=== PATIENT | female | born 1975 | race Caucasian/White ===

== ENCOUNTER 2020-04-22 11:10 | Outpatient (CLI) | payer OTHER, SELFPAY ==
--- NOTE | 2020-04-22 11:20 | ECG_ITS ---
Measurements Intervals [place] Rate: 70 P: 64 MS: 160 QRS: 41 QRSD: 86 T: 46 QT: 392 QTc: 424 Interpretive Statements SINUS RHYTHM BASELINE ARTIFACT- I, II, III, AVR, AVL, AVF, V1-V6 NORMAL ECG Electronically Signed On 04-22-2020 11:35:54 [employer] by Pineda Madden D.O.
[2020-04-22 12:03] LABS: Anion Gap 2 mmol/L (8-16); Blood Urea Nitrogen 28 mg/dL (7-17); Carbon Dioxide 33 mmol/L (22-30); Chloride 103 mmol/L (98-107); Estimated Glomerular Filt Rate > 60; Glucose 74 mg/dL (65-105); Potassium 4.1 mmol/L (3.4-5.0); Sodium 138 mmol/L (137-145)
== END 2020-04-22 11:11 | disposition home or self-care (01) ==
PROVIDERS: Anesthesiology; Visit Provider Surgery Plastic and Reconstructive Surgery
DX: Z01.812 Encounter for preprocedural laboratory examination (principal); Z51.81 Encounter for therapeutic drug level monitoring; Z79.899 Other long term (current) drug therapy
CPT/HCPCS: 36415; 80048; 93005

== ENCOUNTER 2020-04-25 00:58 | Outpatient (CLI) | payer OTHER, SELFPAY ==
[2020-04-25 19:13] LABS: SARS-CoV-2 RNA PCR Negative
== END 2020-04-25 00:59 | disposition home or self-care (01) ==
LOC: ANHCOVIDDT 00:58
PROVIDERS: Visit Provider Surgery Plastic and Reconstructive Surgery
DX: Z01.812 Encounter for preprocedural laboratory examination (principal); Z20.828 Contact with and (suspected) exposure to other viral communicable diseases
CPT/HCPCS: 87635; C9803; U0003

== ENCOUNTER 2020-04-28 01:13 | Day surgery (SDC) | payer OTHER, SELFPAY ==
[2020-04-21 15:40] VITALS: BMI 21.9
--- NOTE | 2020-04-27 12:14 | WPDANESEPPF ---
Anes - Initial Pre Proc Eval Procedure: Operation Date: 04/28/20 12:30 Proposed Procedures p Bilateral Augmentation Mammoplasty - Jordi Rogers MD s Liposuction Of Bilateral Flank - Jordi Rogers MD Date/Time: 04/27/20 12:14 Surgeon: Jordi Rogers MD Pre Op Diagnosis: Micromastia/Adipose Tissue Patient Data Age: 44 Gender: F Height: 1.63 m Weight: 58 kg Allergies Allergy/AdvReac Type Severity Reaction Status Date / Time No Known Allergies Allergy Verified 04/28/20 10:43 Home Medications Medication Instructions Recorded Confirmed Type furosemide 20 mg tablet 10 mg PO QAM 01/29/20 04/28/20 History lisinopril 5 mg tablet 5 mg PO HS 01/29/20 04/28/20 History mycophenolate mofetil 500 mg tablet 500 mg PO QAM 01/29/20 04/28/20 History prednisone 10 mg tablet 5 mg PO QAM 01/29/20 04/28/20 History rosuvastatin 40 mg tablet 20 mg PO DAILY 01/29/20 04/28/20 History docusate sodium 100 mg capsule 100 mg PO DAILY #14 cap 04/13/20 04/28/20 Rx ondansetron HCl 4 mg tablet 4 mg PO Q8H #28 tablet 04/13/20 04/21/20 Rx carisoprodol 350 mg tablet 350 mg PO TID PRN #21 tablet 04/14/20 04/28/20 Rx oxycodone-acetaminophen 5 mg-325 1 tablet PO Q6H PRN #15 tablet 04/14/20 04/21/20 Rx mg tablet Aspirin Child 81 mg PO DAILY 04/21/20 04/28/20 History Vitamin D3 1,000 units PO DAILY 04/21/20 04/28/20 History ascorbic acid (vitamin C) 500 mg PO DAILY 04/21/20 04/28/20 History Patient hx anesthesia problems: none Family hx anesthesia problems: none PMFSH Past Medical History Medical History (Updated 04/27/20 @ 12:15 by Evan Scott MD) Cardiac calcification Hypercholesterolemia Kidney dysfunction Lupus Surgical History Surgical History History of partial hysterectomy Social History Social History (Reviewed 04/13/20 @ 16:59 by Tamara Yan Smoking status: Former smoker Tobacco type: cigarettes Alcohol intake: current Drinks per week: 1 Substance use: never Living arrangements: with family Spiritual care concerns: No Anes - Eval Final PreProcedure Day of Procedure 04/27/20 12:14 Patient weight: normal Heart: regular rate and rhythm Lungs: clear to auscultation and normal air movement Airway: Mallampati scale class II Neurological: alert and oriented Last oral intake: >/= 8 hours ASA classification: III Emergent: no Anesthetic plan: proceed Anesthesia type and monitoring: general LMA and ETT Informed Consent: The patient's anesthetic plan and its attendant risks and benefits were discussed with the patient/family/POA. Questions were solicited and answers provided to the satisfaction of the patient/family/POA.
[2020-04-28] VITALS (10 sets, daily range): BP systolic 101–115; BP diastolic 51–83; PULSE 66–94; RESP 15–20; TEMP 36.3–36.4; O2SAT 99–100; BMI 22.1
[2020-04-28] MEDS: LACTATED RINGERS 1,000 ML 30 ML IV CONT ×2 (11:00→15:07)
--- NOTE | 2020-04-28 11:56 | WPDHPUPDATE1 ---
History and Physical Update Update Date/Time: 04/28/20 11:56 History and Physical has been reviewed, including an updated exam of the patient. There are NO changes in the patient's condition. Risks, benefits, and alternatives have been discussed and questions answered. Patient agrees to proceed with procedure.
--- NOTE | 2020-04-28 12:24 | PM.PROC ---
Procedure Note - Detailed Date of procedure: 04/28/20 Pre-op diagnosis: Micromastia/Adipose Tissue Post-op diagnosis: same Procedure performed: 1. Bilateral Augmentation Mammaplasty 2. Suction lipectomy of Flank Description of procedure: She is here today for bilateral breast augmentation. Previously and again today the risks, benefits, alternatives were discussed in extensive detail. I wanted her to be very realistic about the risks involved as well as expectations. We discussed aftercare and what to monitor for. Made sure answered all of her questions to her satisfaction today and consent was obtained. Marked in the preoperative holding area with their verification. We had a lengthy discussion about asymmetries and realistic expectations of outcome. These areas of concern were identified to her. We marked out all areas including suction lipectomy which she includes a small central lower abdomen pocket which will be treated. I made sure we were in full agreement and she had clear understanding prior to proceeding. The patient was taken to the operating room placed supine on the operating table. Anesthesia was provided by anesthesiology. Prepped and draped in a standard sterile fashion. This was a 360 degree prep while supine. A surgical time-out was taken. Stab incisions were made for suction lipectomy and infiltrated with a tumescent solution in the areas of concern. I gave time for adequate hemostasis. Then using a 4 mm basket cannula and modification of S.A.F.E. tech make completed suction lipectomy of the flank and other areas of concern to a rolling pinch test based on preoperative planning intraoperative observations as well as a rolling pinch test as above. Steri-Strips were placed on the sites. At this point we re-prepped and draped in a standard sterile fashion to ensure sterility for augmentation. 1% lidocaine and 0.25% Marcaine with epinephrine was used anesthetize as a field block. She was prepped and draped in a standard sterile fashion. Tegaderm nipple Lawrence were placed. A 15 blade used to make an incision along the inframammary fold. Dissection was continued at 45 degree angle until the chest wall as identified. I incised the pectoralis major along its inferior border and completely released the inferior border leaving the medial border intact. I created a subpectoral pocket in the appropriate dimensions based on our preoperative planning for the implant. I then copiously irrigated with saline solution and verified a strict hemostasis. Next the use a triple antibiotic and Betadine containing solution to irrigate the pocket. I washed my gloves with the triple antibiotic and Betadine solution. We washed the implant immediately upon opening it with this solution and only opened it when we needed it. I used implant funnel and no-touch technique. The implant was introduced into the pocket using the funnel. Having verified positioning of the implant this was closed using 2-0 Vicryl followed by 3-0 Monocryl in a running subcuticular 4-0 Monocryl followed by tissue glue. Fluffs, Anjum wrap, and surgical bra were placed. Patient was awoke and taken to PACU without difficulty. All instrument sponge counts were correct at the end of the case. Anesthesia: GETA Surgeon: Jordi Rogers MD Estimated blood loss (mL): 75 Drains: No Packing: No Pathology: none sent Complications: No immediate complications Condition: stable Disposition: PACU Findings: Bilateral dual plane 3 augmentation Kevin Nash SofTouch 445cc Right: REF# [id number] SN [id number] Left: REF# [id number] SN [id number]
[2020-04-28] MEDS: ceFAZolin 2 GM/D5W 50 ML 2 GM/50 ML BAG IVPB (12:31)
--- NOTE | 2020-04-28 13:18 | SUR.OPER ---
PT LISTED BLEEDING DISORDER IN HISTORY IN EMR. WHEN QUESTIONED PT STATED SHE HAD ANTICARDIOLIPIN ANTIBODIES . DR CASTANON AND DR SCOTT AWARE- DR SCOTT STATED PT RECEIVED CLEARANCE FROM HER MEDICAL DOCTOR, CARDIOGIST, AND COMMISSIONS ANALYST.
[2020-04-28] MEDS: LIDO 1%/EPINEPHRINE 1:100,000 20 ML VIAL 40 ML INFILTRATE (14:02)
== END 2020-04-28 17:00 | disposition home or self-care (01) ==
PROVIDERS: Visit Provider Surgery Plastic and Reconstructive Surgery
PROC: (CPT 19325; principal; 2020-04-28 12:30)
PROC: (CPT 15877; 2020-04-28 12:30)
DX: Z41.1 Encounter for cosmetic surgery (principal); N64.82 Hypoplasia of breast; E65 Localized adiposity; E78.00 Pure hypercholesterolemia, unspecified; Z87.891 Personal history of nicotine dependence; Z79.899 Other long term (current) drug therapy
CPT/HCPCS: 19325; 15877; J0171; J0330; J0690; J1100; J1580; J2250; J2405; J2704; J3010; J7120

== ENCOUNTER → 2020-06-24 11:25 | Outpatient (REF) | payer OTHER, SELFPAY | LOC: ANHLAB 11:25 | PROVIDERS: Visit Provider Surgery Plastic and Reconstructive Surgery | DX: L98.9 Disorder of the skin and subcutaneous tissue, unspecified (principal); D22.5 Melanocytic nevi of trunk | CPT/HCPCS: 88305 ==